=== PATIENT | male | born 1960 | race African-American/Black ===

== ENCOUNTER 2020-03-29 23:29 | Emergency (ER) | payer OTHER ==
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
[2020-03-29 23:40] VITALS: BP 147/99; PULSE 117; TEMP 99.9; BMI 25.1
[2020-03-29] MEDS ORDERED: ACETAMINOPHEN 325 MG TABLET (FP) PO ONE (23:59)
[2020-03-30] MEDS ORDERED: ACETAMINOPHEN 325 MG TABLET (FP) ONE ×2 (00:03)
== END 2020-03-30 00:45 | disposition home or self-care (01) ==
LOC: SUPCPDRO 23:29 → FER 23:29
DX: S86.012A Strain of left Achilles tendon, initial encounter (principal)
CPT/HCPCS: 99283-25